=== PATIENT | male | born 2000 | race African-American/Black ===

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

== ENCOUNTER 2018-04-27 21:34 | Emergency (ER) | payer BC, OTHER ==
[~2018-04-27] VITALS: Ht 177.8 cm; Wt 103.6 kg
[2018-04-27 21:38] VITALS: TEMP 99.3
[2018-04-27] MEDS ORDERED: MOTRIN 800800 MG/TAB PO (22:00)
[2018-04-27] MEDS ORDERED: FLEXERIL 1010 MG/TAB PO (22:00)
[2018-04-27 22:34] VITALS: BP 136/94; PULSE 95
== END 2018-04-27 22:35 | disposition home or self-care (01) ==
LOC: COL.ER 21:34
DX: S20.219A Contusion of unspecified front wall of thorax, initial encounter (principal); S40.022A Contusion of left upper arm, initial encounter; S80.12XA Contusion of left lower leg, initial encounter; S80.11XA Contusion of right lower leg, initial encounter; Y04.8XXA Assault by other bodily force, initial encounter; Y92.009 Unspecified place in unspecified non-institutional (private) residence as the place of occurrence of the external cause

== ENCOUNTER 2018-12-03 21:04 | Emergency (ER) | payer OTHER ==
[~2018-12-03] VITALS: Ht 180.3 cm; Wt 102.3 kg
[~2018-12-03 21:04] MED LIST changes: +FLEXERIL 1010 MG/TAB PO; +MOTRIN 800800 MG/TAB PO
[2018-12-03 21:15] VITALS: BP 141/87; PULSE 119; TEMP 100
[2018-12-03 21:56] LABS: STREP SCREEN NEGATIVE
[2018-12-03] MEDS ORDERED: CEPHALEXIN500 M1 PO (22:03)
== END 2018-12-03 22:33 | disposition home or self-care (01) ==
LOC: COL.ER 21:04
PROVIDERS: Physician Assistant
DX: J03.90 Acute tonsillitis, unspecified (principal); F17.210 Nicotine dependence, cigarettes, uncomplicated; Z88.0 Allergy status to penicillin
CPT/HCPCS: J1885

== ENCOUNTER 2019-03-24 09:31 | Emergency (ER) | payer OTHER ==
[~2019-03-24] VITALS: Ht 180.3 cm; Wt 97.7 kg
[~2019-03-24 09:31] MED LIST changes: +CEPHALEXIN500 M1 PO
[2019-03-24 09:35] VITALS: BP 131/83
[2019-03-24 09:59] LABS: STREP SCREEN POSITIVE
[2019-03-24] MEDS ORDERED: CLEOCIN HCL300 MG PO (10:37)
[2019-03-24 11:12] VITALS: PULSE 74; TEMP 99.2
== END 2019-03-24 11:14 | disposition home or self-care (01) ==
LOC: COL.ER 09:31
PROVIDERS: Physician Assistant
DX: J36 Peritonsillar abscess (principal); Z88.0 Allergy status to penicillin
CPT/HCPCS: J1100; J7030

== ENCOUNTER 2019-06-17 22:24 | Emergency (ER) | payer BC ==
[~2019-06-17] VITALS: Ht 177.8 cm; Wt 101.4 kg
[~2019-06-17 22:24] MED LIST changes: +CLEOCIN HCL300 MG PO
[2019-06-18 00:37] VITALS: BP 140/71; PULSE 68; TEMP 98.4
[2019-06-18] MEDS ORDERED: CRUTCHES MC (00:38)
== END 2019-06-18 00:47 | disposition home or self-care (01) ==
LOC: COL.ER 22:24
DX: M79.671 Pain in right foot (principal)

== ENCOUNTER 2019-12-28 17:41 | Emergency (ER) | payer BC ==
[~2019-12-28] VITALS: Ht 177.8 cm; Wt 100.0 kg
[~2019-12-28 17:41] MED LIST changes: +CRUTCHES MC
[2019-12-28 17:45] VITALS: TEMP 99.1
[2019-12-28] MEDS ORDERED: FLEXERIL 1010 MG/TAB PO (18:44)
[2019-12-28 19:06] VITALS: BP 121/80; PULSE 99
== END 2019-12-28 19:14 | disposition home or self-care (01) ==
LOC: COL.ER 17:41
DX: S83.91XA Sprain of unspecified site of right knee, initial encounter (principal); S16.1XXA Strain of muscle, fascia and tendon at neck level, initial encounter; S50.811A Abrasion of right forearm, initial encounter; R40.2412 Glasgow coma scale score 13-15, at arrival to emergency department; Z88.0 Allergy status to penicillin; V29.40XA Motorcycle driver injured in collision with unspecified motor vehicles in traffic accident, initial encounter
CPT/HCPCS: L1846

== ENCOUNTER 2020-09-28 13:47 | Emergency (ER) | payer BC ==
[~2020-09-28] VITALS: Ht 177.8 cm; Wt 100.0 kg
[2020-09-28 13:52] VITALS: TEMP 98
[2020-09-28] MEDS ORDERED: BACITRACIN OPH3.5 GM OU (14:50)
[2020-09-28] MEDS ORDERED: MOTRIN 400400 MG/TAB PO (14:50)
[2020-09-28 14:58] VITALS: BP 136/80; PULSE 73
== END 2020-09-28 14:58 | disposition home or self-care (01) ==
LOC: COL.ER 13:47
DX: T15.02XA Foreign body in cornea, left eye, initial encounter (principal)

== ENCOUNTER 2022-01-25 22:27 | Emergency (ER) | payer BC ==
[~2022-01-25] VITALS: Ht 177.8 cm; Wt 104.5 kg
[~2022-01-25 22:27] MED LIST changes: +BACITRACIN OPH3.5 GM OU; +MOTRIN 400400 MG/TAB PO
[2022-01-26 00:12] LABS: STREP SCREEN NEGATIVE
[2022-01-26 01:47] VITALS: BP 150/86; PULSE 79; TEMP 98.4
== END 2022-01-26 01:47 | disposition home or self-care (01) ==
LOC: COL.ER 22:27
PROVIDERS: Emergency Medicine
DX: J06.9 Acute upper respiratory infection, unspecified (principal); Z20.822 Contact with and (suspected) exposure to COVID-19; Z28.310 Unvaccinated for COVID-19

== ENCOUNTER 2022-08-13 04:55 | Emergency (ER) | payer BC ==
[~2022-08-13] VITALS: Ht 180.3 cm; Wt 105.5 kg
[~2022-08-13 04:55] MED LIST changes: +FLONASE NASAL S16 GM NS
[2022-08-13 05:01] VITALS: BP 142/95; TEMP 98.1
[2022-08-13] MEDS ORDERED: NORCO 325 MG-51 TAB PO (05:38)
[2022-08-13] MEDS ORDERED: ZOFRAN ODT4 MG PO (05:38)
[2022-08-13 05:43] VITALS: PULSE 80
== END 2022-08-13 05:44 | disposition home or self-care (01) ==
LOC: COL.ER 04:55
DX: T15.02XA Foreign body in cornea, left eye, initial encounter (principal); Z28.310 Unvaccinated for COVID-19